=== PATIENT | female | born 1980 | race Two or more races ===

== ENCOUNTER 2025-04-05 19:21 | Emergency (ER) | payer OTHER ==
[~2025-04-05] VITALS: Ht 152.4 cm; Wt 61.2 kg
[2025-04-05 20:33] LABS: BASOPHILS # (AUTO) 0.1 K/uL (0.0-0.2); BASOPHILS % (AUTO) 1.4 % (0.0-2.0); EOSINOPHILS # (AUTO) 0.1 K/uL (0.0-0.7); EOSINOPHILS % (AUTO) 2.3 % (0.0-6.0); HEMATOCRIT 39 % (33-45); HEMOGLOBIN 12.9 g/dL (11.5-14.8); LYMPHOCYTES # (AUTO) 2.1 K/uL (0.8-4.8); LYMPHOCYTES % (AUTO) 32.1 % (20.0-44.0); MEAN CORPUSCULAR HEMOGLOBIN 31 PG (26.0-33.0); MEAN CORPUSCULAR HGB CONC 33 g/dl (31.0-36.0); MEAN CORPUSCULAR VOLUME 91 fL (82-100); MONOCYTES # (AUTO) 0.7 K/uL (0.1-1.30); MONOCYTES % (AUTO) 11.5 % (2.0-12.0); NEUTROPHILS # (AUTO) 3.4 K/uL (1.8-8.9); NEUTROPHILS % (AUTO) 52.7 % (43.0-81.0); PLATELET COUNT (AUTO) 258 K/uL (150-450); RED BLOOD CELL COUNT(AUTO) 4.22 MIL/uL (4.0-5.2); RED CELL DISTRIBUTION WIDTH 13.3 % (11.5-15.0); WHITE BLOOD COUNT (AUTO) 6.4 K/uL (4.3-11.0)
[2025-04-05 20:41] LABS: CALCIUM, SERUM 8.9 mg/dL (8.5-10.1); CREATININE 0.7 mg/dL (0.6-1.3); POTASSIUM 3.7 mmol/L (3.5-5.1)
[2025-04-05] MEDS ORDERED: ACETAMINOPHEN ES 500 MG TABLET ONE (20:42)
[2025-04-05] MEDS: IV NS 0.9% 1,000 ML BAG IV ONE (20:46)
[2025-04-05] MEDS: ACETAMINOPHEN ES 500 MG TABLET PO ONE (20:46)
[2025-04-05] MEDS ORDERED: IOHEXOL-300 100 ML VIAL IV ONE (21:04)
[2025-04-05] MEDS ORDERED: IV NS 0.9% 250 ML IV ONE (21:04)
[2025-04-05 23:07] VITALS: BP 113/60; TEMP 98; O2SAT 98
== END 2025-04-05 23:16 | disposition home or self-care (01) ==
LOC: ER 19:28
DX: S30.1XXA Contusion of abdominal wall, initial encounter (principal); S20.212A Contusion of left front wall of thorax, initial encounter; R10.2 Pelvic and perineal pain; V43.62XA Car passenger injured in collision with other type car in traffic accident, initial encounter; Y93.89 Activity, other specified; Y92.89 Other specified places as the place of occurrence of the external cause; Y99.8 Other external cause status
CPT/HCPCS: 99285; 71260; 96360; 74177; 85025; 80048; 36415; 84702; J7030; J7050; Q9967